=== PATIENT | female | born 1995 | race Caucasian/White ===

== ENCOUNTER 2019-11-09 13:16 | Outpatient (CLI) | payer OTHER ==
[~2019-11-09] VITALS: Ht 182.9 cm; Wt 150.0 kg
[~2019-11-09 13:16] MED LIST: NEXPLANON68 MG ID; ZOFRAN ODT8 MG PO
[2019-11-09 13:25] VITALS: BP 126/76; PULSE 99
[2019-11-09 14:15] VITALS: BP 119/82; PULSE 76; PULSE 79
[2019-11-09 14:30] VITALS: BP 102/62; PULSE 62
[2019-11-09 14:45] VITALS: BP 101/75; PULSE 82
[2019-11-09 15:15] VITALS: BP 109/66; PULSE 80
[2019-11-09 15:28] LABS: GLUCOSE,CSF 53 mg/dL (40-70)
[2019-11-09 15:30] LABS: CSF APPEARANCE CLEAR; CSF COLOR COLORLESS; CSF RBC 0 /mm3 (0-0)
[2019-11-09 15:57] LABS: CSF MONONUCLEAR 100 % (70-100); CSF POLYMORPHONUCLEAR 0 % (0-6)
[2019-11-10 18:55] LABS: TOTAL PROTEIN,CSF 35 mg/dL (15-45)
== END 2019-11-09 15:30 | disposition home or self-care (01) ==
LOC: COL.RAD 13:16
PROVIDERS: Psychiatry & Neurology Neurology
DX: H47.10 Unspecified papilledema (principal)

== ENCOUNTER → 2020-01-21 | Outpatient (CLI) | payer OTHER | LOC: COL.RAD 13:03 | DX: M51.37 Other intervertebral disc degeneration, lumbosacral region (principal); M47.817 Spondylosis without myelopathy or radiculopathy, lumbosacral region ==

== ENCOUNTER 2020-03-13 21:17 | Emergency (ER) | payer OTHER ==
[~2020-03-13] VITALS: Ht 182.9 cm; Wt 154.5 kg
[2020-03-13 21:23] VITALS: TEMP 97.5
[2020-03-13 21:58] LABS: BASO % 0.2 % (0.0-2.0); EOS % 0.2 % (0-4.0); GRAN % 86.8 % (42.2-75.2); HEMATOCRIT 44.1 % (37.0-47.0); HEMOGLOBIN 14.9 g/dl (12.5-16.0); LYMPH # 1.3 (1.2-3.4); LYMPH % 7.6 % (20.0-51.0); MEAN CELL VOLUME 86 fl (80.0-100.0); MEAN CORPUSCULAR HEMOGLOBIN 29 pg (27.0-31.0); MEAN CORPUSCULAR HGB CONC 34 g/dl (33.0-37.0); MEAN PLATELET VOLUME 10.7 fl (7.4-10.4); MONO # 0.8 (0.1-0.6); MONO % 4.9 % (1.7-9.3); PLATELET COUNT 296 K/mm3 (130-400); RED BLOOD COUNT 5.14 M/mm3 (4.10-5.30); REDCELL DISTRIBUTION WIDTH-CV 13.6 % (11.5-14.5)
[2020-03-13 22:12] LABS: ALBUMIN 4.3 gm/dL (3.5-5.0); BILIRUBIN,TOTAL 0.9 mg/dL (0.0-1.0); C-REACTIVE PROTEIN 1.7 mg/dL (0.0-0.9); CALCIUM 9.2 mg/dL (8.4-10.2); CREATININE, serum 0.77 (0.52-1.25); POTASSIUM 3.8 mmol/L (3.4-5.0)
[2020-03-14 03:25] VITALS: PULSE 90
== END 2020-03-13 23:20 | disposition home or self-care (01) ==
LOC: COL.ER 21:17
PROVIDERS: Family Medicine
DX: K52.9 Noninfective gastroenteritis and colitis, unspecified (principal)
CPT/HCPCS: J2405; J7120

== ENCOUNTER 2021-09-13 09:33 | Emergency (ER) | payer SELFPAY ==
[~2021-09-13] VITALS: Ht 182.9 cm; Wt 151.4 kg
[2021-09-13 09:38] VITALS: TEMP 98.2
[2021-09-13] MEDS ORDERED: FLEXERIL 1010 MG/TAB PO (10:17)
[2021-09-13] MEDS ORDERED: PERCOCET 325 MG1 TA2 PO (10:17)
[2021-09-13] MEDS ORDERED: PREDNISONE20 MG PO (10:17)
[2021-09-13 10:35] VITALS: BP 130/70; PULSE 80
== END 2021-09-13 10:37 | disposition home or self-care (01) ==
LOC: COL.ER 09:33
DX: M54.16 Radiculopathy, lumbar region (principal); M79.605 Pain in left leg

== ENCOUNTER → 2021-11-21 | Outpatient (CLI) | payer BC ==
[~2021-11-21] MED LIST changes: +FLEXERIL 1010 MG/TAB PO; +PERCOCET 325 MG1 TA2 PO; +PREDNISONE20 MG PO
== END ==
LOC: MHCPAIN 08:11
DX: M47.816 Spondylosis without myelopathy or radiculopathy, lumbar region (principal); M53.3 Sacrococcygeal disorders, not elsewhere classified; M54.16 Radiculopathy, lumbar region
CPT/HCPCS: G0463